=== PATIENT | female | born 1970 | race Two or more races ===

== ENCOUNTER 2017-09-20 11:18 | Outpatient (CLI) | payer OTHER | END 2017-09-20 16:38 | disposition home or self-care (01) | LOC: MAMO-SONO 11:18 | DX: N60.11 Diffuse cystic mastopathy of right breast (principal); N60.12 Diffuse cystic mastopathy of left breast; Z12.31 Encounter for screening mammogram for malignant neoplasm of breast ==

== ENCOUNTER 2017-11-17 11:05 | Outpatient (CLI) | payer OTHER | END 2017-11-17 11:11 | disposition home or self-care (01) | LOC: SONOGRAMA 11:05 | DX: N60.11 Diffuse cystic mastopathy of right breast (principal); N60.12 Diffuse cystic mastopathy of left breast ==